=== PATIENT | male | born 1955 | race African-American/Black ===

== ENCOUNTER 2018-03-11 15:45 | Emergency (ER) | payer OTHER ==
[2018-03-11] MEDS: TETRACAINE 0.5% 4 ML OPH BOTH EYES ×2 (20:21→20:22)
[2018-03-11] MEDS: HYDROCODONE/APAP (5/325) TAB PO (21:10)
== END 2018-03-11 21:25 | disposition home or self-care (01) ==
LOC: E/R 15:45
DX: H53.8 Other visual disturbances (principal); E11.9 Type 2 diabetes mellitus without complications; I10 Essential (primary) hypertension; Z79.82 Long term (current) use of aspirin; Z79.84 Long term (current) use of oral hypoglycemic drugs; Z86.69 Personal history of other diseases of the nervous system and sense organs
CPT/HCPCS: 82962; 99283

== ENCOUNTER 2018-07-31 06:51 | Emergency (ER) | payer OTHER ==
[2018-07-31] MEDS: DEXTROSE 50% 50 ML SYRINGE IV (07:20)
[2018-07-31] MEDS: SOD CHLORIDE 0.9% 1,000 ML IV (07:21)
[2018-07-31 07:55] LABS: ADD MAN DIFF? NO
[2018-07-31 07:59] LABS: BASOPHILS % 0.3 % (0.0-2.0); EOSINOPHILS % 0.7 % (0.0-7.0); HEMATOCRIT 42.3 % (42.0-52.0); HEMOGLOBIN 13.5 g/dl (14.0-18.0); LYMPHOCYTES # 1.1 10^3/ul (0.8-2.9); LYMPHOCYTES % 18.7 % (15.0-51.0); MEAN CORPUSCULAR HEMOGLOBIN 27.8 pg (29.0-33.0); MEAN CORPUSCULAR HGB CONC 31.9 g/dl (32.0-37.0); MEAN PLATELET VOLUME 10.1 fl (7.4-10.4); MONOCYTES % 17.1 % (0.0-11.0); NEUTROPHIL # 3.8 10^3/ul (1.6-7.5); NEUTROPHILS % 62.7 % (39.0-77.0); PLATELET COUNT 228 10^3/UL (140-415); RED BLOOD COUNT 4.86 10^6/ul (4.70-6.10); RED CELL DISTRIBUTION WIDTH 18.1 % (11.5-14.5)
[2018-07-31 08:20] LABS: ALANINE AMINOTRANSFERASE 67 IU/L (13-69); ALBUMIN 4.4 g/dl (3.3-4.9); ALBUMIN/GLOBULIN RATIO 1.18; ALKALINE PHOSPHATASE 115 IU/L (42-121); ANION GAP 12 (5-13); ASPARTATE AMINO TRANSFERASE 72 IU/L (15-46); BLOOD UREA NITROGEN 33 mg/dl (7-20); CALCIUM 10.2 mg/dl (8.4-10.2); CARBON DIOXIDE 20 mmol/L (21-31); CHLORIDE 109 mmol/L (97-110); CREATININE 1.28 mg/dl (0.61-1.24); Estimated GFR > 60 mL/min (>60); GLUCOSE 191 mg/dl (70-220); LIPASE 319 U/L (23-300); SODIUM 141 mmol/L (135-144); TOTAL PROTEIN 8.1 g/dl (6.1-8.1)
[2018-07-31 08:32] LABS: TROPONIN-I < 0.012 ng/ml (0.000-0.120)
[2018-07-31] MEDS: OXYCODONE/ACETAMINOPHEN (5/325) TAB PO (08:55)
[2018-07-31] MEDS: IBUPROFEN 600 MG TAB PO (10:06)
== END 2018-07-31 11:10 | disposition home or self-care (01) ==
LOC: E/R 06:51
DX: G93.41 Metabolic encephalopathy (principal); M54.5 Low back pain; E86.0 Dehydration; E11.649 Type 2 diabetes mellitus with hypoglycemia without coma; I10 Essential (primary) hypertension; Z79.82 Long term (current) use of aspirin; Z79.84 Long term (current) use of oral hypoglycemic drugs
CPT/HCPCS: 36415; 70450; 71045; 80053; 82962; 83690; 84484; 85025; 93005; 96374; 99285-25

== ENCOUNTER 2018-12-18 15:12 | Inpatient (IN) | payer OTHER ==
[2018-12-18 15:34] LABS: ADD MAN DIFF? NO
[2018-12-18 15:36] LABS: WHITE BLOOD COUNT 8.9 10^3/ul (4.8-10.8)
[2018-12-18 15:36] LABS: BASOPHILS % 0.2 % (0.0-2.0); EOSINOPHILS # 0.2 10^3/ul (0.0-0.5); EOSINOPHILS % 2.4 % (0.0-7.0); HEMATOCRIT 35.6 % (42.0-52.0); HEMOGLOBIN 11.1 g/dl (14.0-18.0); LYMPHOCYTES # 1.5 10^3/ul (0.8-2.9); LYMPHOCYTES % 17.4 % (15.0-51.0); MEAN CORPUSCULAR HEMOGLOBIN 26.6 pg (29.0-33.0); MEAN CORPUSCULAR HGB CONC 31.2 g/dl (32.0-37.0); MEAN CORPUSCULAR VOLUME 85.4 fl (82.0-101.0); MEAN PLATELET VOLUME 9.6 fl (7.4-10.4); MONOCYTE # 1.1 10^3/ul (0.3-0.9); MONOCYTES % 12.8 % (0.0-11.0); NEUTROPHIL # 5.9 10^3/ul (1.6-7.5); NEUTROPHILS % 66.7 % (39.0-77.0); PLATELET COUNT 267 10^3/UL (140-415); RED BLOOD COUNT 4.17 10^6/ul (4.70-6.10)
[2018-12-18] MEDS: SOD CHLORIDE 0.9% 1,000 ML IV ×2 (15:41→22:45)
[2018-12-18 15:53] LABS: ANION GAP 15 (5-13); BLOOD UREA NITROGEN 18 mg/dl (7-20); CALCIUM 9.6 mg/dl (8.4-10.2); CARBON DIOXIDE 23 mmol/L (21-31); CHLORIDE 102 mmol/L (97-110); CREATININE 1.45 mg/dl (0.61-1.24); Estimated GFR 59 mL/min (>60); GLUCOSE 123 mg/dl (70-220); POTASSIUM 3.3 mmol/L (3.5-5.1); SODIUM 140 mmol/L (135-144)
[2018-12-18 16:04] LABS: TROPONIN-I 0.039 ng/ml (0.000-0.120)
[2018-12-18] MEDS ORDERED: ACETAMINOPHEN 325 MG TAB PO (18:30)
[2018-12-18] MEDS ORDERED: OXYCODONE/ACETAMINOPHEN (5/325) TAB PO (18:30)
[2018-12-18] MEDS ORDERED: ONDANSETRON 4 MG INJ IV ×2 (18:30)
[2018-12-18] MEDS: POTASSIUM CHLORIDE 20 MEQ POWDER FOR ORAL SOLN PO (18:30)
[2018-12-18] MEDS ORDERED: NACL 0.9% 3 ML SYG IV (18:30)
[2018-12-18] MEDS ORDERED: GLUCOSE GEL 15 GRAM TUBE PO ×2 (19:00)
[2018-12-18] MEDS ORDERED: DEXTROSE 50% 50 ML SYRINGE IV ×2 (19:00)
[2018-12-18] MEDS ORDERED: GLUCAGON 1 MG INJ IM (19:00)
[2018-12-18] MEDS ORDERED: GLUCOSE GEL 15 GRAM TUBE BUCCAL (19:00)
[2018-12-18] MEDS: HYDROCODONE/APAP (10/325) TAB PO (19:07)
[2018-12-18 19:19] LABS: HAAIG REFLEX REFLEX FILED
[2018-12-18 20:00] LABS: HEPATITIS B SURFACE ANTIGEN NEGATIVE (NEGATIVE)
[2018-12-18 20:18] LABS: HEPATITIS B CORE ANTIBODY REACTIVE (NEGATIVE)
[2018-12-18 20:23] LABS: HEPATITIS C VIRAL ANTIBODY REACTIVE (NEGATIVE)
[2018-12-18] MEDS: INSULIN ASPART [NOVOLOG] 3 ML PEN SC (21:00)
[2018-12-18 22:30] LABS: ADD UMIC YES; AMPHETAMINE/METHAMPHETAMINE Negative (NEGATIVE); BARBITURATES Negative (NEGATIVE); BENZODIAZEPINES Negative (NEGATIVE); CANNABINOIDS Negative (NEGATIVE); COCAINE Negative (NEGATIVE); UR ASCORBIC ACID NEGATIVE (NEGATIVE); UR BILIRUBIN (Dip) NEGATIVE (NEGATIVE); UR BLOOD (Dip) NEGATIVE (NEGATIVE); UR CLARITY SLIGHTLY CLOUDY (CLEAR); UR COLOR YELLOW (YELLOW); UR GLUCOSE (Dip) NEGATIVE (NEGATIVE); UR KETONES (Dip) 1+ mg/dL (NEGATIVE); UR LEUKOCYTE ESTERASE (Dip) NEGATIVE Leu/ul (NEGATIVE); UR MUCUS MODERATE /HPF (NONE SEEN); UR NITRITE (Dip) NEGATIVE (NEGATIVE); UR RBC 1 /HPF (0-5); UR TOTAL PROTEIN (Dip) 2+ mg/dl (NEGATIVE); UR UROBILINOGEN (Dip) NEGATIVE (NEGATIVE); UR WBC 4 /HPF (0-5)
[2018-12-18 22:31] LABS: OPIATES Positive (NEGATIVE)
[2018-12-18] MEDS: LEVETIRACETAM 500 MG (PMX) 100 ML IVPB (22:39)
[2018-12-18] MEDS: LATANOPROST 0.005% 2.5 ML OPH BOTH EYES (22:40)
[2018-12-18] MEDS: TIMOLOL 0.25% 5 ML OPH BOTH EYES (22:40)
[2018-12-18] MEDS: BRIMONIDINE 0.15% 5 ML OPH BOTH EYES (22:40)
[2018-12-18] MEDS: DOCUSATE SODIUM 100 MG CAP PO (22:44)
[2018-12-18] MEDS: FAMOTIDINE 20 MG TAB PO (22:45)
[2018-12-18] MEDS: CYCLOBENZAPRINE 10 MG TAB PO (22:45)
[2018-12-18] MEDS: ATORVASTATIN 40 MG TAB PO (22:45)
[2018-12-18] MEDS: traZODone 50 MG TAB PO (22:47)
[2018-12-19] MEDS: HYDROCODONE/APAP (10/325) TAB PO ×3 (00:11→21:02)
[2018-12-19] MEDS: AMLODIPINE 10 MG TAB PO ×2 (00:14→08:23)
[2018-12-19] MEDS: ACCU-CHEK XX (02:42)
[2018-12-19] MEDS: CYCLOBENZAPRINE 10 MG TAB PO ×3 (05:08→21:01)
[2018-12-19] MEDS: BRIMONIDINE 0.15% 5 ML OPH BOTH EYES ×3 (05:08→21:02)
[2018-12-19 06:19] LABS: ADD MAN DIFF? NO
[2018-12-19 06:24] LABS: WHITE BLOOD COUNT 6.5 10^3/ul (4.8-10.8)
[2018-12-19 06:24] LABS: BASOPHILS % 0.3 % (0.0-2.0); EOSINOPHILS # 0.2 10^3/ul (0.0-0.5); EOSINOPHILS % 3.1 % (0.0-7.0); HEMATOCRIT 34.1 % (42.0-52.0); HEMOGLOBIN 10.5 g/dl (14.0-18.0); LYMPHOCYTES # 1.1 10^3/ul (0.8-2.9); LYMPHOCYTES % 17.1 % (15.0-51.0); MEAN CORPUSCULAR HEMOGLOBIN 26.3 pg (29.0-33.0); MEAN CORPUSCULAR HGB CONC 30.8 g/dl (32.0-37.0); MEAN CORPUSCULAR VOLUME 85.3 fl (82.0-101.0); MEAN PLATELET VOLUME 9.8 fl (7.4-10.4); MONOCYTES % 15.7 % (0.0-11.0); NEUTROPHIL # 4.1 10^3/ul (1.6-7.5); NEUTROPHILS % 63.5 % (39.0-77.0); PLATELET COUNT 234 10^3/UL (140-415)
[2018-12-19 06:42] LABS: ALBUMIN 3.7 g/dl (3.3-4.9)
[2018-12-19 06:44] LABS: ALANINE AMINOTRANSFERASE 42 IU/L (13-69); ALBUMIN/GLOBULIN RATIO 1.05; ALKALINE PHOSPHATASE 96 IU/L (42-121); ANION GAP 12 (5-13); ASPARTATE AMINO TRANSFERASE 39 IU/L (15-46); BILIRUBIN,INDIRECT 0.4 mg/dl (0-1.1); BILIRUBIN,TOTAL 0.4 mg/dl (0.2-1.3); BLOOD UREA NITROGEN 20 mg/dl (7-20); CALCIUM 9.4 mg/dl (8.4-10.2); CARBON DIOXIDE 25 mmol/L (21-31); CHLORIDE 104 mmol/L (97-110); CHOL/HDL RATIO 2.4 RATIO; CHOLESTEROL 84 mg/dl (100-200); CREATININE 1.13 mg/dl (0.61-1.24); Estimated GFR > 60 mL/min (>60); GLUCOSE 95 mg/dl (70-220); HDL CHOLESTEROL 34 mg/dl (30-78); LDL CHOLESTEROL,CALCULATED 29 mg/dl; MAGNESIUM 1.7 mg/dl (1.7-2.5); POTASSIUM 3.4 mmol/L (3.5-5.1); SODIUM 141 mmol/L (135-144); TOTAL PROTEIN 7.2 g/dl (6.1-8.1); TRIGLYCERIDES 103 mg/dl (0-149)
[2018-12-19 06:54] LABS: HEMOGLOBIN A1C 6.1 % (0-5.9)
[2018-12-19 07:34] LABS: THYROID STIMULATING HORMONE 0.352 MIU/L (0.465-4.680)
[2018-12-19] MEDS: INSULIN ASPART [NOVOLOG] 3 ML PEN SC ×4 (07:46→20:51)
[2018-12-19] MEDS: ISOSORBIDE MONONITRATE(SR)30 MG TAB PO (08:22)
[2018-12-19] MEDS: DOCUSATE SODIUM 100 MG CAP PO ×2 (08:22→20:52)
[2018-12-19] MEDS: ASPIRIN (EC) 81 MG TAB PO (08:22)
[2018-12-19] MEDS: FAMOTIDINE 20 MG TAB PO ×2 (08:23→20:52)
[2018-12-19] MEDS: traZODone 50 MG TAB PO ×2 (08:23→20:52)
[2018-12-19] MEDS: TIMOLOL 0.25% 5 ML OPH BOTH EYES ×2 (08:24→20:52)
[2018-12-19] MEDS ORDERED: AMLODIPINE 10 MG TAB PO (09:00)
[2018-12-19] MEDS: LEVETIRACETAM 500 MG (PMX) 100 ML IVPB (09:44)
[2018-12-19 10:44] LABS: PHOSPHORUS 3.8 mg/dl (2.5-4.9)
[2018-12-19] MEDS: ACETAMINOPHEN 325 MG TAB PO (11:58)
[2018-12-19] MEDS ORDERED: hydrALAzine 20 MG INJ IV (12:00)
[2018-12-19] MEDS: POTASSIUM CHLORIDE 20 MEQ POWDER FOR ORAL SOLN PO (12:46)
[2018-12-19] MEDS: ACET/BUTAL/CAFF TAB PO (12:46)
[2018-12-19] MEDS: metFORMIN 500 MG TAB PO (17:34)
[2018-12-19] MEDS: ATORVASTATIN 40 MG TAB PO (20:52)
[2018-12-19] MEDS: LATANOPROST 0.005% 2.5 ML OPH BOTH EYES (20:53)
[2018-12-20] MEDS: ACCU-CHEK XX (01:50)
[2018-12-20 05:11] LABS: ADD MAN DIFF? NO
[2018-12-20 05:18] LABS: BASOPHILS % 0.2 % (0.0-2.0); EOSINOPHILS # 0.1 10^3/ul (0.0-0.5); EOSINOPHILS % 2.2 % (0.0-7.0); HEMATOCRIT 34.6 % (42.0-52.0); HEMOGLOBIN 10.9 g/dl (14.0-18.0); LYMPHOCYTES # 1.1 10^3/ul (0.8-2.9); MEAN CORPUSCULAR HEMOGLOBIN 26.8 pg (29.0-33.0); MEAN CORPUSCULAR HGB CONC 31.5 g/dl (32.0-37.0); MEAN PLATELET VOLUME 9.7 fl (7.4-10.4); MONOCYTE # 0.8 10^3/ul (0.3-0.9); MONOCYTES % 13.8 % (0.0-11.0); NEUTROPHIL # 3.9 10^3/ul (1.6-7.5); NEUTROPHILS % 65.5 % (39.0-77.0); PLATELET COUNT 217 10^3/UL (140-415); RED BLOOD COUNT 4.07 10^6/ul (4.70-6.10); RED CELL DISTRIBUTION WIDTH 13.6 % (11.5-14.5)
[2018-12-20] MEDS: CYCLOBENZAPRINE 10 MG TAB PO ×3 (05:24→22:00)
[2018-12-20] MEDS: BRIMONIDINE 0.15% 5 ML OPH BOTH EYES ×3 (05:24→22:09)
[2018-12-20 05:41] LABS: ANION GAP 9 (5-13); BLOOD UREA NITROGEN 21 mg/dl (7-20); CALCIUM 9.5 mg/dl (8.4-10.2); CARBON DIOXIDE 27 mmol/L (21-31); CHLORIDE 109 mmol/L (97-110); CREATININE 1.09 mg/dl (0.61-1.24); Estimated GFR > 60 mL/min (>60); GLUCOSE 132 mg/dl (70-220); MAGNESIUM 1.7 mg/dl (1.7-2.5); PHOSPHORUS 3.1 mg/dl (2.5-4.9); POTASSIUM 3.8 mmol/L (3.5-5.1); SODIUM 145 mmol/L (135-144)
[2018-12-20] MEDS: INSULIN ASPART [NOVOLOG] 3 ML PEN SC ×4 (08:00→21:00)
[2018-12-20] MEDS: DOCUSATE SODIUM 100 MG CAP PO ×2 (08:24→22:09)
[2018-12-20] MEDS: ASPIRIN (EC) 81 MG TAB PO (08:24)
[2018-12-20] MEDS: ISOSORBIDE MONONITRATE(SR)30 MG TAB PO (08:24)
[2018-12-20] MEDS: AMLODIPINE 10 MG TAB PO (08:24)
[2018-12-20] MEDS: metFORMIN 500 MG TAB PO ×2 (08:24→17:47)
[2018-12-20] MEDS: traZODone 50 MG TAB PO ×2 (08:24→22:09)
[2018-12-20] MEDS: TIMOLOL 0.25% 5 ML OPH BOTH EYES ×2 (08:25→22:10)
[2018-12-20] MEDS: FAMOTIDINE 20 MG TAB PO ×2 (08:25→22:09)
[2018-12-20] MEDS: HYDROCODONE/APAP (10/325) TAB PO ×3 (08:37→22:09)
[2018-12-20] MEDS: KETOROLAC 30 MG INJ IM (11:44)
[2018-12-20] MEDS: KETOROLAC 15 MG INJ IV (19:28)
[2018-12-20] MEDS: ATORVASTATIN 40 MG TAB PO (22:09)
[2018-12-20] MEDS: LATANOPROST 0.005% 2.5 ML OPH BOTH EYES (22:10)
[2018-12-21] MEDS: ACCU-CHEK XX (02:00)
[2018-12-21 05:08] LABS: ADD MAN DIFF? NO
[2018-12-21 05:20] LABS: WHITE BLOOD COUNT 5.5 10^3/ul (4.8-10.8)
[2018-12-21 05:20] LABS: BASOPHILS % 0.4 % (0.0-2.0); EOSINOPHILS # 0.1 10^3/ul (0.0-0.5); EOSINOPHILS % 2.5 % (0.0-7.0); HEMATOCRIT 34.7 % (42.0-52.0); HEMOGLOBIN 10.7 g/dl (14.0-18.0); LYMPHOCYTES # 1.1 10^3/ul (0.8-2.9); LYMPHOCYTES % 20.4 % (15.0-51.0); MEAN CORPUSCULAR HEMOGLOBIN 26.8 pg (29.0-33.0); MEAN CORPUSCULAR HGB CONC 30.8 g/dl (32.0-37.0); MEAN CORPUSCULAR VOLUME 86.8 fl (82.0-101.0); MONOCYTE # 0.9 10^3/ul (0.3-0.9); MONOCYTES % 15.9 % (0.0-11.0); NEUTROPHIL # 3.4 10^3/ul (1.6-7.5); NEUTROPHILS % 60.6 % (39.0-77.0); PLATELET COUNT 220 10^3/UL (140-415); RED CELL DISTRIBUTION WIDTH 13.6 % (11.5-14.5)
[2018-12-21 05:52] LABS: ANION GAP 8 (5-13); BLOOD UREA NITROGEN 24 mg/dl (7-20); CALCIUM 9.3 mg/dl (8.4-10.2); CARBON DIOXIDE 27 mmol/L (21-31); CHLORIDE 108 mmol/L (97-110); CREATININE 1.01 mg/dl (0.61-1.24); Estimated GFR > 60 mL/min (>60); GLUCOSE 116 mg/dl (70-220); MAGNESIUM 1.6 mg/dl (1.7-2.5); PHOSPHORUS 3.5 mg/dl (2.5-4.9); POTASSIUM 3.7 mmol/L (3.5-5.1); SODIUM 143 mmol/L (135-144)
[2018-12-21] MEDS: CYCLOBENZAPRINE 10 MG TAB PO ×3 (06:00→22:17)
[2018-12-21] MEDS: BRIMONIDINE 0.15% 5 ML OPH BOTH EYES ×3 (06:31→22:17)
[2018-12-21] MEDS: HYDROCODONE/APAP (10/325) TAB PO ×3 (06:36→22:17)
[2018-12-21] MEDS: INSULIN ASPART [NOVOLOG] 3 ML PEN SC ×4 (07:40→21:00)
[2018-12-21] MEDS: metFORMIN 500 MG TAB PO ×2 (07:40→17:40)
[2018-12-21] MEDS: traZODone 50 MG TAB PO ×2 (08:30→21:03)
[2018-12-21] MEDS: FAMOTIDINE 20 MG TAB PO ×2 (08:30→21:03)
[2018-12-21] MEDS: ASPIRIN (EC) 81 MG TAB PO (08:31)
[2018-12-21] MEDS: TIMOLOL 0.25% 5 ML OPH BOTH EYES ×2 (08:31→21:02)
[2018-12-21] MEDS: AMLODIPINE 10 MG TAB PO (08:31)
[2018-12-21] MEDS: DOCUSATE SODIUM 100 MG CAP PO ×2 (08:31→21:03)
[2018-12-21] MEDS: ISOSORBIDE MONONITRATE(SR)30 MG TAB PO (08:31)
[2018-12-21] MEDS: MAGNESIUM SULFATE 2 GM/50 ML 50 ML IVPB (09:52)
[2018-12-21] MEDS: KETOROLAC 15 MG INJ IV (16:27)
[2018-12-21] MEDS: ATORVASTATIN 40 MG TAB PO (21:03)
[2018-12-21] MEDS: LATANOPROST 0.005% 2.5 ML OPH BOTH EYES (21:08)
[2018-12-22] MEDS: ACCU-CHEK XX (02:00)
[2018-12-22 05:56] LABS: ADD MAN DIFF? NO
[2018-12-22 06:11] LABS: WHITE BLOOD COUNT 5.9 10^3/ul (4.8-10.8)
[2018-12-22 06:11] LABS: BASOPHILS % 0.3 % (0.0-2.0); EOSINOPHILS # 0.1 10^3/ul (0.0-0.5); EOSINOPHILS % 1.9 % (0.0-7.0); HEMATOCRIT 35.3 % (42.0-52.0); LYMPHOCYTES # 1.2 10^3/ul (0.8-2.9); LYMPHOCYTES % 20.1 % (15.0-51.0); MEAN CORPUSCULAR HEMOGLOBIN 26.6 pg (29.0-33.0); MEAN CORPUSCULAR HGB CONC 31.2 g/dl (32.0-37.0); MEAN CORPUSCULAR VOLUME 85.5 fl (82.0-101.0); MEAN PLATELET VOLUME 10.2 fl (7.4-10.4); MONOCYTE # 0.8 10^3/ul (0.3-0.9); MONOCYTES % 13.2 % (0.0-11.0); NEUTROPHIL # 3.8 10^3/ul (1.6-7.5); NEUTROPHILS % 64.2 % (39.0-77.0); PLATELET COUNT 244 10^3/UL (140-415); RED BLOOD COUNT 4.13 10^6/ul (4.70-6.10); RED CELL DISTRIBUTION WIDTH 13.5 % (11.5-14.5)
[2018-12-22] MEDS: BRIMONIDINE 0.15% 5 ML OPH BOTH EYES ×3 (06:20→21:35)
[2018-12-22] MEDS: CYCLOBENZAPRINE 10 MG TAB PO ×3 (06:20→21:36)
[2018-12-22 06:46] LABS: ANION GAP 9 (5-13); BLOOD UREA NITROGEN 20 mg/dl (7-20); CALCIUM 9.4 mg/dl (8.4-10.2); CARBON DIOXIDE 25 mmol/L (21-31); CHLORIDE 108 mmol/L (97-110); CREATININE 0.93 mg/dl (0.61-1.24); Estimated GFR > 60 mL/min (>60); GLUCOSE 103 mg/dl (70-220); MAGNESIUM 1.8 mg/dl (1.7-2.5); PHOSPHORUS 3.4 mg/dl (2.5-4.9); POTASSIUM 3.8 mmol/L (3.5-5.1); SODIUM 142 mmol/L (135-144)
[2018-12-22] MEDS: INSULIN ASPART [NOVOLOG] 3 ML PEN SC ×4 (07:49→21:00)
[2018-12-22] MEDS: metFORMIN 500 MG TAB PO ×2 (07:49→18:35)
[2018-12-22] MEDS: AMLODIPINE 10 MG TAB PO (08:44)
[2018-12-22] MEDS: FAMOTIDINE 20 MG TAB PO ×2 (08:44→21:36)
[2018-12-22] MEDS: ISOSORBIDE MONONITRATE(SR)30 MG TAB PO (08:44)
[2018-12-22] MEDS: TIMOLOL 0.25% 5 ML OPH BOTH EYES ×2 (08:44→21:35)
[2018-12-22] MEDS: ASPIRIN (EC) 81 MG TAB PO (08:44)
[2018-12-22] MEDS: DOCUSATE SODIUM 100 MG CAP PO ×2 (08:44→21:35)
[2018-12-22] MEDS: traZODone 50 MG TAB PO ×2 (08:44→21:36)
[2018-12-22] MEDS: HYDROCODONE/APAP (10/325) TAB PO ×2 (11:46→16:13)
[2018-12-22] MEDS: KETOROLAC 15 MG INJ IV (13:06)
[2018-12-22] MEDS: HYDROCODONE/APAP (5/325) TAB PO (20:20)
[2018-12-22] MEDS ORDERED: KETOROLAC 30 MG INJ IV (21:30)
[2018-12-22] MEDS: LATANOPROST 0.005% 2.5 ML OPH BOTH EYES (21:34)
[2018-12-22] MEDS: ATORVASTATIN 40 MG TAB PO (21:36)
[2018-12-22] MEDS: KETOROLAC 30 MG INJ IV (21:41)
[2018-12-23] MEDS: HYDROCODONE/APAP (5/325) TAB PO ×2 (00:32→06:55)
[2018-12-23] MEDS: ACCU-CHEK XX (01:23)
[2018-12-23] MEDS: CYCLOBENZAPRINE 10 MG TAB PO ×3 (06:52→21:27)
[2018-12-23] MEDS: BRIMONIDINE 0.15% 5 ML OPH BOTH EYES ×3 (06:52→21:27)
[2018-12-23] MEDS: INSULIN ASPART [NOVOLOG] 3 ML PEN SC ×4 (08:00→20:32)
[2018-12-23] MEDS: DOCUSATE SODIUM 100 MG CAP PO ×2 (08:26→20:28)
[2018-12-23] MEDS: ASPIRIN (EC) 81 MG TAB PO (08:26)
[2018-12-23] MEDS: FAMOTIDINE 20 MG TAB PO ×2 (08:26→20:29)
[2018-12-23] MEDS: traZODone 50 MG TAB PO ×2 (08:26→20:28)
[2018-12-23] MEDS: metFORMIN 500 MG TAB PO ×2 (08:26→17:30)
[2018-12-23] MEDS: AMLODIPINE 10 MG TAB PO (08:27)
[2018-12-23] MEDS: KETOROLAC 30 MG INJ IV ×2 (08:34→16:27)
[2018-12-23] MEDS: OXYCODONE/ACETAMINOPHEN (10/325) TAB PO ×2 (12:08→20:28)
[2018-12-23] MEDS: TIMOLOL 0.25% 5 ML OPH BOTH EYES ×2 (12:09→20:28)
[2018-12-23] MEDS: LIDOCAINE 5% PATCH TD (12:14)
[2018-12-23] MEDS: ISOSORBIDE MONONITRATE(SR)30 MG TAB PO (16:26)
[2018-12-23] MEDS: ATORVASTATIN 40 MG TAB PO (20:28)
[2018-12-23] MEDS: LATANOPROST 0.005% 2.5 ML OPH BOTH EYES (20:28)
[2018-12-24] MEDS: OXYCODONE/ACETAMINOPHEN (10/325) TAB PO ×4 (01:22→20:27)
[2018-12-24] MEDS: ACCU-CHEK XX (02:00)
[2018-12-24] MEDS: BRIMONIDINE 0.15% 5 ML OPH BOTH EYES ×3 (06:29→22:13)
[2018-12-24] MEDS: CYCLOBENZAPRINE 10 MG TAB PO ×3 (06:29→22:00)
[2018-12-24 07:13] LABS: ADD MAN DIFF? NO
[2018-12-24 07:17] LABS: WHITE BLOOD COUNT 5.1 10^3/ul (4.8-10.8)
[2018-12-24 07:17] LABS: BASOPHILS % 0.2 % (0.0-2.0); EOSINOPHILS # 0.1 10^3/ul (0.0-0.5); EOSINOPHILS % 2.2 % (0.0-7.0); HEMATOCRIT 34.6 % (42.0-52.0); HEMOGLOBIN 10.7 g/dl (14.0-18.0); LYMPHOCYTES # 1.2 10^3/ul (0.8-2.9); MEAN CORPUSCULAR HEMOGLOBIN 26.2 pg (29.0-33.0); MEAN CORPUSCULAR HGB CONC 30.9 g/dl (32.0-37.0); MEAN CORPUSCULAR VOLUME 84.8 fl (82.0-101.0); MEAN PLATELET VOLUME 9.7 fl (7.4-10.4); MONOCYTE # 0.8 10^3/ul (0.3-0.9); MONOCYTES % 15.3 % (0.0-11.0); NEUTROPHILS % 57.9 % (39.0-77.0); PLATELET COUNT 261 10^3/UL (140-415); RED BLOOD COUNT 4.08 10^6/ul (4.70-6.10); RED CELL DISTRIBUTION WIDTH 13.8 % (11.5-14.5)
[2018-12-24] MEDS: INSULIN ASPART [NOVOLOG] 3 ML PEN SC ×4 (08:00→20:30)
[2018-12-24] MEDS: FAMOTIDINE 20 MG TAB PO ×2 (08:27→20:27)
[2018-12-24] MEDS: traZODone 50 MG TAB PO ×2 (08:27→20:26)
[2018-12-24] MEDS: ISOSORBIDE MONONITRATE(SR)30 MG TAB PO (08:27)
[2018-12-24] MEDS: metFORMIN 500 MG TAB PO ×2 (08:28→18:49)
[2018-12-24] MEDS: ASPIRIN (EC) 81 MG TAB PO (08:28)
[2018-12-24] MEDS: AMLODIPINE 10 MG TAB PO (08:28)
[2018-12-24] MEDS: DOCUSATE SODIUM 100 MG CAP PO ×2 (08:28→20:27)
[2018-12-24] MEDS: LIDOCAINE 5% PATCH TD (08:29)
[2018-12-24] MEDS: KETOROLAC 30 MG INJ IV ×3 (08:36→22:14)
[2018-12-24] MEDS: TIMOLOL 0.25% 5 ML OPH BOTH EYES ×2 (08:42→20:27)
[2018-12-24] MEDS: OXYCODONE/ACETAMINOPHEN (5/325) TAB PO (12:55)
[2018-12-24] MEDS: ATORVASTATIN 40 MG TAB PO (20:26)
[2018-12-24] MEDS: LATANOPROST 0.005% 2.5 ML OPH BOTH EYES (20:27)
[2018-12-25 05:50] LABS: ADD MAN DIFF? NO
[2018-12-25 05:56] LABS: BASOPHILS % 0.4 % (0.0-2.0); EOSINOPHILS # 0.1 10^3/ul (0.0-0.5); EOSINOPHILS % 2.2 % (0.0-7.0); HEMATOCRIT 34.6 % (42.0-52.0); HEMOGLOBIN 10.6 g/dl (14.0-18.0); LYMPHOCYTES # 1.2 10^3/ul (0.8-2.9); MEAN CORPUSCULAR HEMOGLOBIN 26.2 pg (29.0-33.0); MEAN CORPUSCULAR HGB CONC 30.6 g/dl (32.0-37.0); MEAN CORPUSCULAR VOLUME 85.6 fl (82.0-101.0); MEAN PLATELET VOLUME 10.5 fl (7.4-10.4); MONOCYTE # 0.8 10^3/ul (0.3-0.9); MONOCYTES % 16.6 % (0.0-11.0); NEUTROPHIL # 2.8 10^3/ul (1.6-7.5); NEUTROPHILS % 56.6 % (39.0-77.0); PLATELET COUNT 241 10^3/UL (140-415); RED BLOOD COUNT 4.04 10^6/ul (4.70-6.10); RED CELL DISTRIBUTION WIDTH 13.8 % (11.5-14.5)
[2018-12-25] MEDS: BRIMONIDINE 0.15% 5 ML OPH BOTH EYES ×3 (06:04→20:17)
[2018-12-25] MEDS: CYCLOBENZAPRINE 10 MG TAB PO ×3 (06:04→20:17)
[2018-12-25] MEDS: INSULIN ASPART [NOVOLOG] 3 ML PEN SC ×4 (08:00→20:55)
[2018-12-25] MEDS: traZODone 50 MG TAB PO ×2 (08:38→20:17)
[2018-12-25] MEDS: AMLODIPINE 10 MG TAB PO (08:39)
[2018-12-25] MEDS: metFORMIN 500 MG TAB PO ×2 (08:39→17:48)
[2018-12-25] MEDS: DOCUSATE SODIUM 100 MG CAP PO ×2 (08:39→20:16)
[2018-12-25] MEDS: ISOSORBIDE MONONITRATE(SR)30 MG TAB PO (08:39)
[2018-12-25] MEDS: FAMOTIDINE 20 MG TAB PO ×2 (08:39→21:50)
[2018-12-25] MEDS: ASPIRIN (EC) 81 MG TAB PO (08:39)
[2018-12-25] MEDS: TIMOLOL 0.25% 5 ML OPH BOTH EYES ×2 (08:40→20:02)
[2018-12-25] MEDS: LIDOCAINE 5% PATCH TD (08:40)
[2018-12-25] MEDS: OXYCODONE/ACETAMINOPHEN (10/325) TAB PO ×3 (09:00→17:51)
[2018-12-25] MEDS: KETOROLAC 30 MG INJ IV ×2 (11:44→19:59)
[2018-12-25] MEDS: LATANOPROST 0.005% 2.5 ML OPH BOTH EYES (20:17)
[2018-12-25] MEDS: ATORVASTATIN 40 MG TAB PO (20:17)
[2018-12-26 05:44] LABS: ADD MAN DIFF? NO
[2018-12-26 05:48] LABS: WHITE BLOOD COUNT 5.3 10^3/ul (4.8-10.8)
[2018-12-26 05:48] LABS: BASOPHILS % 0.4 % (0.0-2.0); EOSINOPHILS # 0.1 10^3/ul (0.0-0.5); EOSINOPHILS % 1.9 % (0.0-7.0); HEMATOCRIT 35.2 % (42.0-52.0); HEMOGLOBIN 10.9 g/dl (14.0-18.0); LYMPHOCYTES # 1.2 10^3/ul (0.8-2.9); LYMPHOCYTES % 21.9 % (15.0-51.0); MEAN CORPUSCULAR HEMOGLOBIN 26.5 pg (29.0-33.0); MEAN CORPUSCULAR VOLUME 85.6 fl (82.0-101.0); MONOCYTE # 0.9 10^3/ul (0.3-0.9); MONOCYTES % 16.9 % (0.0-11.0); NEUTROPHIL # 3.1 10^3/ul (1.6-7.5); NEUTROPHILS % 58.5 % (39.0-77.0); PLATELET COUNT 251 10^3/UL (140-415); RED BLOOD COUNT 4.11 10^6/ul (4.70-6.10); RED CELL DISTRIBUTION WIDTH 13.6 % (11.5-14.5)
[2018-12-26] MEDS: OXYCODONE/ACETAMINOPHEN (5/325) TAB PO (06:25)
[2018-12-26] MEDS: CYCLOBENZAPRINE 10 MG TAB PO ×3 (06:25→22:01)
[2018-12-26] MEDS: BRIMONIDINE 0.15% 5 ML OPH BOTH EYES ×3 (06:25→22:01)
[2018-12-26] MEDS: INSULIN ASPART [NOVOLOG] 3 ML PEN SC ×4 (08:00→21:00)
[2018-12-26] MEDS: DOCUSATE SODIUM 100 MG CAP PO ×2 (08:14→22:01)
[2018-12-26] MEDS: FAMOTIDINE 20 MG TAB PO ×2 (08:14→22:01)
[2018-12-26] MEDS: ASPIRIN (EC) 81 MG TAB PO (08:14)
[2018-12-26] MEDS: ISOSORBIDE MONONITRATE(SR)30 MG TAB PO (08:15)
[2018-12-26] MEDS: metFORMIN 500 MG TAB PO ×2 (08:15→18:17)
[2018-12-26] MEDS: AMLODIPINE 10 MG TAB PO (08:16)
[2018-12-26] MEDS: traZODone 50 MG TAB PO ×2 (08:16→22:01)
[2018-12-26] MEDS: LIDOCAINE 5% PATCH TD (08:16)
[2018-12-26] MEDS: TIMOLOL 0.25% 5 ML OPH BOTH EYES ×2 (09:56→22:02)
[2018-12-26] MEDS: KETOROLAC 30 MG INJ IV ×3 (10:00→22:00)
[2018-12-26] MEDS: OXYCODONE/ACETAMINOPHEN (10/325) TAB PO ×4 (10:55→22:00)
[2018-12-26] MEDS: LATANOPROST 0.005% 2.5 ML OPH BOTH EYES (22:01)
[2018-12-26] MEDS: ATORVASTATIN 40 MG TAB PO (22:01)
[2018-12-27] MEDS: OXYCODONE/ACETAMINOPHEN (10/325) TAB PO ×2 (02:09→06:17)
[2018-12-27] MEDS: CYCLOBENZAPRINE 10 MG TAB PO ×3 (06:17→21:43)
[2018-12-27] MEDS: KETOROLAC 30 MG INJ IV (06:17)
[2018-12-27] MEDS: BRIMONIDINE 0.15% 5 ML OPH BOTH EYES ×3 (06:19→21:46)
[2018-12-27] MEDS: OXYCODONE/ACETAMINOPHEN (5/325) TAB PO (07:46)
[2018-12-27] MEDS: INSULIN ASPART [NOVOLOG] 3 ML PEN SC ×4 (08:00→20:50)
[2018-12-27] MEDS: metFORMIN 500 MG TAB PO ×2 (08:23→17:57)
[2018-12-27] MEDS: FAMOTIDINE 20 MG TAB PO ×2 (08:24→20:50)
[2018-12-27] MEDS: ASPIRIN (EC) 81 MG TAB PO (08:24)
[2018-12-27] MEDS: DOCUSATE SODIUM 100 MG CAP PO ×2 (08:24→20:50)
[2018-12-27] MEDS: predniSONE 20 MG TAB PO (08:24)
[2018-12-27] MEDS: AMLODIPINE 10 MG TAB PO (08:25)
[2018-12-27] MEDS: traZODone 50 MG TAB PO ×2 (08:25→20:50)
[2018-12-27] MEDS: ISOSORBIDE MONONITRATE(SR)30 MG TAB PO (08:25)
[2018-12-27] MEDS: TIMOLOL 0.25% 5 ML OPH BOTH EYES ×2 (08:26→20:49)
[2018-12-27] MEDS: LIDOCAINE 5% PATCH TD (08:28)
[2018-12-27] MEDS: HYDROmorphONE 1 MG/ML SYG IV ×3 (10:50→21:45)
[2018-12-27] MEDS ORDERED: VANCOMYCIN IV PER PHARMACY XX (12:30)
[2018-12-27] MEDS ORDERED: LORAZEPAM 2 MG INJ IV (12:30)
[2018-12-27] MEDS: oxyCODONE (CR) 10 MG TAB [oxyCONTIN] PO ×2 (12:55→20:50)
[2018-12-27] MEDS: CEFTRIAXONE 2 GM/50 ML (PMX) 50 ML IVPB (13:40)
[2018-12-27] MEDS: VANCOMYCIN 1.5 GM/NS 250 ML 250 ML IVPB (15:50)
[2018-12-27] MEDS: LORAZEPAM 2 MG INJ IV (16:55)
[2018-12-27] MEDS: ATORVASTATIN 40 MG TAB PO (20:49)
[2018-12-27] MEDS: LATANOPROST 0.005% 2.5 ML OPH BOTH EYES (20:51)
[2018-12-28] MEDS: KETOROLAC 30 MG INJ IV ×3 (01:03→14:05)
[2018-12-28] MEDS: VANCOMYCIN 1.25 GM/NS 250 ML 250 ML IVPB (03:55)
[2018-12-28] MEDS: CYCLOBENZAPRINE 10 MG TAB PO ×3 (05:41→21:41)
[2018-12-28] MEDS: BRIMONIDINE 0.15% 5 ML OPH BOTH EYES ×3 (05:41→21:41)
[2018-12-28] MEDS: HYDROmorphONE 1 MG/ML SYG IV ×4 (05:45→20:27)
[2018-12-28 06:22] LABS: CREATININE 1.34 mg/dl (0.61-1.24)
[2018-12-28 06:22] LABS: BLOOD UREA NITROGEN 42 mg/dl (7-20)
[2018-12-28] MEDS: metFORMIN 500 MG TAB PO ×2 (07:51→17:01)
[2018-12-28] MEDS: INSULIN ASPART [NOVOLOG] 3 ML PEN SC ×4 (07:54→20:47)
[2018-12-28] MEDS: ASPIRIN (EC) 81 MG TAB PO (08:44)
[2018-12-28] MEDS: DOCUSATE SODIUM 100 MG CAP PO ×2 (08:44→20:31)
[2018-12-28] MEDS: FAMOTIDINE 20 MG TAB PO ×2 (08:45→20:31)
[2018-12-28] MEDS: ISOSORBIDE MONONITRATE(SR)30 MG TAB PO (08:45)
[2018-12-28] MEDS: traZODone 50 MG TAB PO ×2 (08:45→21:40)
[2018-12-28] MEDS: AMLODIPINE 10 MG TAB PO (08:45)
[2018-12-28] MEDS: predniSONE 20 MG TAB PO (08:45)
[2018-12-28] MEDS: oxyCODONE (CR) 10 MG TAB [oxyCONTIN] PO ×3 (08:45→21:41)
[2018-12-28] MEDS: TIMOLOL 0.25% 5 ML OPH BOTH EYES ×2 (08:46→20:32)
[2018-12-28] MEDS: LIDOCAINE 5% PATCH TD (08:52)
[2018-12-28] MEDS: CEFTRIAXONE 2 GM/50 ML (PMX) 50 ML IVPB (14:01)
[2018-12-28] MEDS: VANCOMYCIN 750 MG (PMX) 250 ML IVPB (20:28)
[2018-12-28] MEDS: ATORVASTATIN 40 MG TAB PO (20:30)
[2018-12-28] MEDS: LATANOPROST 0.005% 2.5 ML OPH BOTH EYES (20:32)
[2018-12-29] MEDS: KETOROLAC 30 MG INJ IV (02:33)
[2018-12-29 05:16] LABS: ADD MAN DIFF? NO
[2018-12-29 05:22] LABS: WHITE BLOOD COUNT 6.8 10^3/ul (4.8-10.8)
[2018-12-29 05:22] LABS: BASOPHILS % 0.4 % (0.0-2.0); EOSINOPHILS # 0.1 10^3/ul (0.0-0.5); EOSINOPHILS % 0.7 % (0.0-7.0); HEMATOCRIT 33.9 % (42.0-52.0); HEMOGLOBIN 10.4 g/dl (14.0-18.0); LYMPHOCYTES % 15.4 % (15.0-51.0); MEAN CORPUSCULAR HEMOGLOBIN 25.8 pg (29.0-33.0); MEAN CORPUSCULAR HGB CONC 30.7 g/dl (32.0-37.0); MEAN CORPUSCULAR VOLUME 84.1 fl (82.0-101.0); MEAN PLATELET VOLUME 10.3 fl (7.4-10.4); MONOCYTE # 1.2 10^3/ul (0.3-0.9); MONOCYTES % 17.3 % (0.0-11.0); NEUTROPHIL # 4.4 10^3/ul (1.6-7.5); NEUTROPHILS % 65.8 % (39.0-77.0); PLATELET COUNT 254 10^3/UL (140-415); RED BLOOD COUNT 4.03 10^6/ul (4.70-6.10); RED CELL DISTRIBUTION WIDTH 13.5 % (11.5-14.5)
[2018-12-29] MEDS: CYCLOBENZAPRINE 10 MG TAB PO ×3 (05:51→22:05)
[2018-12-29] MEDS: BRIMONIDINE 0.15% 5 ML OPH BOTH EYES ×3 (05:51→22:05)
[2018-12-29 06:08] LABS: ALBUMIN 3.6 g/dl (3.3-4.9); ANION GAP 8 (5-13); BLOOD UREA NITROGEN 36 mg/dl (7-20); CALCIUM 9.9 mg/dl (8.4-10.2); CARBON DIOXIDE 24 mmol/L (21-31); CHLORIDE 109 mmol/L (97-110); CREATININE 1.15 mg/dl (0.61-1.24); GLUCOSE 141 mg/dl (70-220); MAGNESIUM 1.8 mg/dl (1.7-2.5); PHOSPHORUS 3.7 mg/dl (2.5-4.9); POTASSIUM 4.1 mmol/L (3.5-5.1); SODIUM 141 mmol/L (135-144)
[2018-12-29] MEDS: HYDROmorphONE 1 MG/ML SYG IV ×4 (06:35→20:43)
[2018-12-29] MEDS: INSULIN ASPART [NOVOLOG] 3 ML PEN SC ×4 (08:00→20:41)
[2018-12-29] MEDS: LIDOCAINE 5% PATCH TD (08:21)
[2018-12-29] MEDS: metFORMIN 500 MG TAB PO ×2 (08:22→17:26)
[2018-12-29] MEDS: ASPIRIN (EC) 81 MG TAB PO (08:22)
[2018-12-29] MEDS: DOCUSATE SODIUM 100 MG CAP PO ×2 (08:22→20:40)
[2018-12-29] MEDS: AMLODIPINE 10 MG TAB PO (08:23)
[2018-12-29] MEDS: ISOSORBIDE MONONITRATE(SR)30 MG TAB PO (08:23)
[2018-12-29] MEDS: oxyCODONE (CR) 10 MG TAB [oxyCONTIN] PO ×3 (08:23→22:05)
[2018-12-29] MEDS: FAMOTIDINE 20 MG TAB PO ×2 (08:23→20:40)
[2018-12-29] MEDS: VANCOMYCIN 750 MG (PMX) 250 ML IVPB ×2 (08:24→20:37)
[2018-12-29] MEDS: TIMOLOL 0.25% 5 ML OPH BOTH EYES ×2 (08:25→20:42)
[2018-12-29] MEDS: traZODone 50 MG TAB PO ×2 (08:32→23:13)
[2018-12-29] MEDS: predniSONE 20 MG TAB PO (08:32)
[2018-12-29] MEDS: MAGNESIUM SULFATE 2 GM/50 ML 50 ML IVPB (10:31)
[2018-12-29] MEDS: CEFTRIAXONE 2 GM/50 ML (PMX) 50 ML IVPB (13:18)
[2018-12-29] MEDS: MELATONIN 5 MG TABLET PO (20:40)
[2018-12-29] MEDS: ATORVASTATIN 40 MG TAB PO (20:40)
[2018-12-29] MEDS: LATANOPROST 0.005% 2.5 ML OPH BOTH EYES (20:42)
[2018-12-30] MEDS: CYCLOBENZAPRINE 10 MG TAB PO ×2 (06:06→14:38)
[2018-12-30] MEDS: BRIMONIDINE 0.15% 5 ML OPH BOTH EYES ×3 (06:06→21:57)
[2018-12-30] MEDS: HYDROmorphONE 1 MG/ML SYG IV ×2 (06:07→10:15)
[2018-12-30 07:51] LABS: ADD MAN DIFF? NO
[2018-12-30 07:53] LABS: BASOPHILS % 0.1 % (0.0-2.0); EOSINOPHILS # 0.1 10^3/ul (0.0-0.5); EOSINOPHILS % 0.9 % (0.0-7.0); HEMATOCRIT 34.1 % (42.0-52.0); HEMOGLOBIN 10.7 g/dl (14.0-18.0); MEAN CORPUSCULAR HEMOGLOBIN 26.2 pg (29.0-33.0); MEAN CORPUSCULAR HGB CONC 31.4 g/dl (32.0-37.0); MEAN CORPUSCULAR VOLUME 83.4 fl (82.0-101.0); MEAN PLATELET VOLUME 10.1 fl (7.4-10.4); MONOCYTE # 1.3 10^3/ul (0.3-0.9); MONOCYTES % 19.3 % (0.0-11.0); NEUTROPHIL # 4.3 10^3/ul (1.6-7.5); NEUTROPHILS % 64.3 % (39.0-77.0); PLATELET COUNT 272 10^3/UL (140-415); RED BLOOD COUNT 4.09 10^6/ul (4.70-6.10); RED CELL DISTRIBUTION WIDTH 13.5 % (11.5-14.5)
[2018-12-30 07:53] LABS: WHITE BLOOD COUNT 6.7 10^3/ul (4.8-10.8)
[2018-12-30] MEDS: INSULIN ASPART [NOVOLOG] 3 ML PEN SC ×4 (08:00→20:42)
[2018-12-30 08:16] LABS: ALBUMIN 3.7 g/dl (3.3-4.9); ANION GAP 10 (5-13); BLOOD UREA NITROGEN 35 mg/dl (7-20); CALCIUM 9.9 mg/dl (8.4-10.2); CARBON DIOXIDE 24 mmol/L (21-31); CHLORIDE 108 mmol/L (97-110); CREATININE 1.21 mg/dl (0.61-1.24); GLUCOSE 124 mg/dl (70-220); PHOSPHORUS 4.1 mg/dl (2.5-4.9); SODIUM 142 mmol/L (135-144)
[2018-12-30 08:21] LABS: VANCOMYCIN,TROUGH 10.2 ug/ml (10.0-20.0)
[2018-12-30] MEDS: predniSONE 20 MG TAB PO (08:30)
[2018-12-30] MEDS: metFORMIN 500 MG TAB PO ×2 (08:30→17:30)
[2018-12-30] MEDS: VANCOMYCIN 750 MG (PMX) 250 ML IVPB (08:30)
[2018-12-30] MEDS: oxyCODONE (CR) 10 MG TAB [oxyCONTIN] PO ×3 (08:31→20:42)
[2018-12-30] MEDS: ISOSORBIDE MONONITRATE(SR)30 MG TAB PO (08:31)
[2018-12-30] MEDS: DOCUSATE SODIUM 100 MG CAP PO ×2 (08:32→20:41)
[2018-12-30] MEDS: FAMOTIDINE 20 MG TAB PO ×2 (08:32→20:41)
[2018-12-30] MEDS: ASPIRIN (EC) 81 MG TAB PO (08:32)
[2018-12-30] MEDS: AMLODIPINE 10 MG TAB PO (08:32)
[2018-12-30] MEDS: TIMOLOL 0.25% 5 ML OPH BOTH EYES ×2 (08:33→20:44)
[2018-12-30] MEDS: LIDOCAINE 5% PATCH TD (08:36)
[2018-12-30] MEDS: HYDROmorphONE 2 MG/ML SYG IV ×3 (13:14→21:56)
[2018-12-30] MEDS: MELATONIN 5 MG TABLET PO (20:41)
[2018-12-30] MEDS: ATORVASTATIN 40 MG TAB PO (20:41)
[2018-12-30] MEDS: LATANOPROST 0.005% 2.5 ML OPH BOTH EYES (20:43)
[2018-12-30] MEDS ORDERED: VANCOMYCIN 1 GM 250 ML IVPB (21:00)
[2018-12-30] MEDS: traZODone 50 MG TAB PO (22:34)
[2018-12-31 05:45] LABS: ADD MAN DIFF? NO
[2018-12-31 05:48] LABS: BASOPHILS % 0.3 % (0.0-2.0); EOSINOPHILS # 0.1 10^3/ul (0.0-0.5); EOSINOPHILS % 0.8 % (0.0-7.0); HEMATOCRIT 35.7 % (42.0-52.0); HEMOGLOBIN 10.9 g/dl (14.0-18.0); LYMPHOCYTES # 1.1 10^3/ul (0.8-2.9); LYMPHOCYTES % 15.4 % (15.0-51.0); MEAN CORPUSCULAR HEMOGLOBIN 25.7 pg (29.0-33.0); MEAN CORPUSCULAR HGB CONC 30.5 g/dl (32.0-37.0); MEAN CORPUSCULAR VOLUME 84.2 fl (82.0-101.0); MONOCYTE # 1.3 10^3/ul (0.3-0.9); NEUTROPHIL # 4.7 10^3/ul (1.6-7.5); NEUTROPHILS % 65.1 % (39.0-77.0); PLATELET COUNT 253 10^3/UL (140-415); RED BLOOD COUNT 4.24 10^6/ul (4.70-6.10); RED CELL DISTRIBUTION WIDTH 13.7 % (11.5-14.5)
[2018-12-31 05:48] LABS: WHITE BLOOD COUNT 7.2 10^3/ul (4.8-10.8)
[2018-12-31 06:13] LABS: ALBUMIN 3.7 g/dl (3.3-4.9); ANION GAP 7 (5-13); BLOOD UREA NITROGEN 41 mg/dl (7-20); CALCIUM 9.9 mg/dl (8.4-10.2); CARBON DIOXIDE 26 mmol/L (21-31); CHLORIDE 108 mmol/L (97-110); CREATININE 1.38 mg/dl (0.61-1.24); GLUCOSE 144 mg/dl (70-220); MAGNESIUM 1.9 mg/dl (1.7-2.5); PHOSPHORUS 3.8 mg/dl (2.5-4.9); POTASSIUM 3.7 mmol/L (3.5-5.1); SODIUM 141 mmol/L (135-144)
[2018-12-31] MEDS: BRIMONIDINE 0.15% 5 ML OPH BOTH EYES ×3 (06:42→22:08)
[2018-12-31] MEDS: HYDROmorphONE 2 MG/ML SYG IV ×4 (07:39→21:00)
[2018-12-31] MEDS: INSULIN ASPART [NOVOLOG] 3 ML PEN SC ×4 (07:55→20:07)
[2018-12-31] MEDS: metFORMIN 500 MG TAB PO ×2 (09:06→17:06)
[2018-12-31] MEDS: oxyCODONE (CR) 10 MG TAB [oxyCONTIN] PO ×3 (09:06→20:05)
[2018-12-31] MEDS: ASPIRIN (EC) 81 MG TAB PO (09:06)
[2018-12-31] MEDS: predniSONE 10 MG TAB PO (09:06)
[2018-12-31] MEDS: FAMOTIDINE 20 MG TAB PO ×2 (09:07→20:05)
[2018-12-31] MEDS: AMLODIPINE 10 MG TAB PO (09:07)
[2018-12-31] MEDS: ISOSORBIDE MONONITRATE(SR)30 MG TAB PO (09:07)
[2018-12-31] MEDS: DOCUSATE SODIUM 100 MG CAP PO ×2 (09:07→20:05)
[2018-12-31] MEDS: TIMOLOL 0.25% 5 ML OPH BOTH EYES ×2 (09:07→20:06)
[2018-12-31] MEDS: SOD CHLORIDE 0.9% 1,000 ML IV (11:29)
[2018-12-31] MEDS: MELATONIN 5 MG TABLET PO (20:05)
[2018-12-31] MEDS: ATORVASTATIN 40 MG TAB PO (20:05)
[2018-12-31] MEDS: LATANOPROST 0.005% 2.5 ML OPH BOTH EYES (20:07)
[2018-12-31] MEDS: traZODone 50 MG TAB PO (21:01)
[2018-12-31] MEDS: ZOLPIDEM 5 MG TAB PO (22:07)
[2019-01-01] MEDS: HYDROmorphONE 2 MG/ML SYG IV ×4 (02:10→16:20)
[2019-01-01] MEDS: BRIMONIDINE 0.15% 5 ML OPH BOTH EYES ×2 (05:43→14:46)
[2019-01-01 05:53] LABS: ADD MAN DIFF? NO
[2019-01-01 05:58] LABS: BASOPHILS % 0.1 % (0.0-2.0); EOSINOPHILS # 0.1 10^3/ul (0.0-0.5); HEMATOCRIT 36.3 % (42.0-52.0); HEMOGLOBIN 11.1 g/dl (14.0-18.0); LYMPHOCYTES # 1.1 10^3/ul (0.8-2.9); LYMPHOCYTES % 16.2 % (15.0-51.0); MEAN CORPUSCULAR HEMOGLOBIN 25.8 pg (29.0-33.0); MEAN CORPUSCULAR HGB CONC 30.6 g/dl (32.0-37.0); MEAN CORPUSCULAR VOLUME 84.2 fl (82.0-101.0); MEAN PLATELET VOLUME 10.3 fl (7.4-10.4); MONOCYTE # 1.1 10^3/ul (0.3-0.9); MONOCYTES % 15.5 % (0.0-11.0); NEUTROPHIL # 4.7 10^3/ul (1.6-7.5); NEUTROPHILS % 66.8 % (39.0-77.0); PLATELET COUNT 278 10^3/UL (140-415); RED BLOOD COUNT 4.31 10^6/ul (4.70-6.10); RED CELL DISTRIBUTION WIDTH 13.6 % (11.5-14.5)
[2019-01-01 06:24] LABS: ANION GAP 10 (5-13); BLOOD UREA NITROGEN 39 mg/dl (7-20); CARBON DIOXIDE 25 mmol/L (21-31); CHLORIDE 109 mmol/L (97-110); Estimated GFR > 60 mL/min (>60); GLUCOSE 154 mg/dl (70-220); MAGNESIUM 1.9 mg/dl (1.7-2.5); PHOSPHORUS 3.7 mg/dl (2.5-4.9); POTASSIUM 3.9 mmol/L (3.5-5.1); SODIUM 144 mmol/L (135-144)
[2019-01-01] MEDS: INSULIN ASPART [NOVOLOG] 3 ML PEN SC ×3 (08:00→16:23)
[2019-01-01] MEDS: TIMOLOL 0.25% 5 ML OPH BOTH EYES (08:57)
[2019-01-01] MEDS: FAMOTIDINE 20 MG TAB PO (08:57)
[2019-01-01] MEDS: metFORMIN 500 MG TAB PO (08:57)
[2019-01-01] MEDS: predniSONE 10 MG TAB PO (08:58)
[2019-01-01] MEDS: DOCUSATE SODIUM 100 MG CAP PO (08:58)
[2019-01-01] MEDS: AMLODIPINE 10 MG TAB PO (08:58)
[2019-01-01] MEDS: ISOSORBIDE MONONITRATE(SR)30 MG TAB PO (08:58)
[2019-01-01] MEDS: ASPIRIN (EC) 81 MG TAB PO (08:58)
[2019-01-01] MEDS: oxyCODONE (CR) 10 MG TAB [oxyCONTIN] PO ×2 (08:58→13:23)
[2019-01-01] MEDS ORDERED: ZOLPIDEM 5 MG TAB PO (09:30)
== END 2019-01-01 18:13 | disposition home health service (06) | DRG 638 ==
LOC: E/R 15:12 → 2NE 12-22 12:41 → 6WM 18:10
DX: E11.649 Type 2 diabetes mellitus with hypoglycemia without coma (principal); M86.9 Osteomyelitis, unspecified; R55 Syncope and collapse; N17.9 Acute kidney failure, unspecified; R56.9 Unspecified convulsions; E11.8 Type 2 diabetes mellitus with unspecified complications; M79.89 Other specified soft tissue disorders; I10 Essential (primary) hypertension; I25.10 Atherosclerotic heart disease of native coronary artery without angina pectoris; H40.9 Unspecified glaucoma; B19.20 Unspecified viral hepatitis C without hepatic coma; R53.81 Other malaise; D64.9 Anemia, unspecified; R47.81 Slurred speech; Z79.82 Long term (current) use of aspirin; I12.9 Hypertensive chronic kidney disease with stage 1 through stage 4 chronic kidney disease, or unspecified chronic kidney disease; E11.22 Type 2 diabetes mellitus with diabetic chronic kidney disease; N18.9 Chronic kidney disease, unspecified; M79.673 Pain in unspecified foot; G89.29 Other chronic pain; M54.9 Dorsalgia, unspecified; Z79.4 Long term (current) use of insulin
CPT/HCPCS: 36415; 70450; 70551; 71045; 72131; 72149; 73630; 73630-LT; 73718; 80048; 80053; 80061; 80069; 80202; 80307; 81001; 82565; 82962; 83036; 83735; 84100; 84443; 84484; 84520; 85025; 86704; 86709; 86803; 87340; 87522; 93005; 93306; 93880; 93970; 95819; 97116; 97162; 97530; 99285-25